=== PATIENT | female | born 1995 | race Two or more races ===

== ENCOUNTER 2022-01-26 22:01 | Emergency (ER) | payer OTHER ==
[~2022-01-26] VITALS: Ht 170.2 cm; Wt 94.3 kg
--- NOTE | 2022-01-26 22:30 | NUR ---
FAHAD. TROUBLE BREATHING "I CANT CATH MY BREATH". FACE NUMBNESS & TINGLING. PATIENT ALERT AND ORIENTED X3. AMBULATORY WITH NON LABORED BREATHING IN BED 10 AWAITING MD LARES.
[2022-01-26] MEDS ORDERED: LORAZEPAM 1 MG TABLET ONE (23:17)
[2022-01-26] MEDS ORDERED: LORAZEPAM 1 MG TABLET PO ONE (23:30)
--- NOTE | 2022-01-27 00:29 | NUR ---
FOLLOWED UP WITH RADIOLOGY FOR XRAY
--- NOTE | 2022-01-27 01:24 | NUR ---
Patient discharged to home in stable condition. Written and verbal after care instructions given. Patient verbalizes understanding of instruction.
[2022-01-27 01:25] VITALS: BP 137/77
== END 2022-01-27 01:25 | disposition home or self-care (01) ==
LOC: ER 22:03
DX: R06.02 Shortness of breath (principal); F41.9 Anxiety disorder, unspecified; T50.5X5A Adverse effect of appetite depressants, initial encounter; T42.6X5A Adverse effect of other antiepileptic and sedative-hypnotic drugs, initial encounter; Z88.2 Allergy status to sulfonamides; Y92.89 Other specified places as the place of occurrence of the external cause
CPT/HCPCS: 71045-TC; 84703-TC